=== PATIENT | male | born 1945 | race Caucasian/White ===

== ENCOUNTER 2022-03-15 14:46 | Emergency (ER) | payer MEDICARE, SELFPAY ==
[2022-03-15 14:56] VITALS: BP 145/63; BP 170/80; PULSE 77; PULSE 80; RESP 16; TEMP 36.7; O2SAT 98; O2SAT 99; BMI 29.7
[2022-03-15 15:29] LABS: Glucose, Whole Blood 141 mg/dL (60-115)
--- NOTE | 2022-03-15 16:35 | ED_ITS ---
HPI - Overdose General Chief Complaint: Overdose Stated Complaint: ALTERED,? DUE TO DRUGS,NARCAN GIVEN W/GOOD RESULT Time Seen by Provider: 03/15/22 15:16 Source: patient and EMS Mode of arrival: EMS History of Present Illness HPI Narrative: This is a 76-year-old male who is brought in by EMS after he was found at home by a friend unresponsive. Patient states that he admits to being tired and that his friend offered him ?something? and then he said I was totally out of it. EMS reports a received 4 mg of intranasal Narcan and had to be bagged for a short period of time. Patient denies use of heroin on a regular basis and states that he was just feeling so tired. He denies wanting to kill himself. Related Data Allergies Allergy/AdvReac Type Severity Reaction Status Date / Time No Known Allergies Allergy Verified 03/15/22 15:03 Review of Systems Review of Systems: Pertinent positives and negatives as stated in HPI 10 point review of systems is otherwise negative. PMFSH Past Medical History Source: nursing notes reviewed Social History Social History Advance Directives: No Advance Directives Information Provided: No Physical Exam Vital Signs: Vital Signs: Last Vital Signs Temp 98.0 F 03/15/22 14:56 Pulse 73 03/15/22 16:43 Resp 14 03/15/22 16:43 BP 130/67 03/15/22 16:43 Pulse Ox 100 03/15/22 16:43 O2 Del Method 03/15/22 16:43 BMI result Body Mass Index 29.7 VITAL SIGNS: Reviewed. GENERAL: Well developed, well nourished, in no acute distress. HEAD: Normocephalic/atraumatic EYES: PERRLA, EOMI EARS: Ext canals without abnormality OROPHARYNX: no oral lesions noted, posterior pharynx clear LUNGS: Normal breath sounds. No adventitious sounds or accessory muscle use. SpO2<100> CARDIOVASCULAR: Regular rate and rhythm without noted murmurs ABDOMEN: Soft, non-tender, non-distended with bowel sounds. MUSCULOSKELETAL: No tenderness, deformities, or effusions noted on gross inspection. EXTREMITIES: No cyanosis, clubbing or edema. SKIN: Inspection of the skin reveals no rashes NEUROLOGIC: Alert and oriented x 4. Strength and sensation to light touch were grossly intact x 4. Course Course Course Narrative: 76-year-old male with history and clinical presentation consistent with extends overdose and no evidence to suggest suicidal ideation as patient denies this. Patient reports that this is his 1st use of heroin however he will be discharged home with with home Narcan. horse riding coach or instructor came by and discussed detox with the patient and he declined. MDM - Overdose Lab Data Labs: Lab Results 03/15/22 Range/Units 15:25 POC Glucose 141 H (60-115) mg/dL Discharge Plan Discharge Clinical Impression: Drug overdose Patient Disposition: Home, Self-Care Instructions: Adult Overdose (ED) Additional Instructions: 1. Resume all home medications as prescribed. 2. Recommend that you avoid taking any drugs. 3. Follow-up with your primary care provider in the next 1-2 days for re- evaluation. Return to the ER for worsening symptoms. Referrals: Abraham Alexander MD [Primary Care Provider] -
[2022-03-15 16:43] VITALS: BP 130/67; PULSE 73; RESP 14; O2SAT 100
--- NOTE | 2022-03-15 18:13 | MHC.RECOVSUP ---
? Reason for consult:Recovery Support o Current location:ED-9 o Identified substance use concern:Heroine - Overdose - Support ? Intervention: o Community resources provided o Harm reduction discussion ? Plan: o Patient to follow up with HF after discharge ? Additional information: Patient refuses detox, Patient wants to go home, Patient given community resources
== END 2022-03-15 19:06 | disposition home or self-care (01) ==
PROVIDERS: Emergency Provider Student in an Organized Health Care Education/Training Program; PCP Internal Medicine
DX: T50.901A Poisoning by unspecified drugs, medicaments and biological substances, accidental (unintentional), initial encounter (principal); R40.4 Transient alteration of awareness; Y92.009 Unspecified place in unspecified non-institutional (private) residence as the place of occurrence of the external cause
CPT/HCPCS: 82947; 99283

== ENCOUNTER 2022-08-04 13:01 | Inpatient (IN) | payer MEDICARE, SELFPAY ==
--- NOTE | ~2022-08-04 | XR_ITS ---
EXAMINATION: XR CHEST CLINICAL INFORMATION: Chest pain COMPARISON: Chest x-rays of 01/02/2010 TECHNIQUE: Frontal view of the chest was obtained. FINDINGS: The cardiomediastinal silhouette is normal. Cardiac leads and wires overlie the chest. Small portion of bilateral lung apices is obscured by patient's face. The lungs are adequately and symmetrically expanded. No focal consolidation, changes of congestion or pleural effusions are seen. No pneumothorax. Regional skeleton is intact. Osteoarthritic changes are noted at the bilateral glenohumeral articulations. Visualized upper abdomen is unremarkable. XR/XR chest 1V IMPRESSION: No acute pulmonary process.
--- NOTE | ~2022-08-04 | US_ITS ---
EXAMINATION: US VENOUS ULTRASOUND WITH DOPPLER LOWER EXTREMITY, BILATERAL CLINICAL INFORMATION: Bilateral leg swelling. COMPARISON: None TECHNIQUE: Ultrasound of the deep veins is performed from the hip to the calf with compression sonography and color and pulse Doppler assessment. Spectral analysis with color-flow imaging is performed. FINDINGS: RIGHT: There is normal venous compression and respiratory variation and augmented flow. The visualized common femoral vein, femoral vein, profunda femoral vein, popliteal vein, and the trifurcation region shows no evidence of deep venous thrombosis. There is no significant popliteal fossa cyst. LEFT: There is normal venous compression and respiratory variation and augmented flow. The visualized common femoral vein, femoral vein, profunda femoral vein, popliteal vein, and the trifurcation region shows no evidence of deep venous thrombosis. There is no significant popliteal fossa cyst. US/US venous duplex LE BI IMPRESSION: No evidence of deep venous thrombosis of the lower extremities, bilaterally.
[2022-08-04 13:18] VITALS: BP 127/70; O2SAT 99
[2022-08-04 13:24] VITALS: BP 152/62; PULSE 82; RESP 15; TEMP 36.7; O2SAT 98
[2022-08-04 13:31] VITALS: BP 152/62; PULSE 78; RESP 18; TEMP 36.7; O2SAT 99; BMI 30.8
--- NOTE | 2022-08-04 13:38 | ECG_ITS ---
Test Reason : CP Blood Pressure : / mmHG Vent. Rate : 068 BPM Atrial Rate : 000 BPM P-R Int : 000 ms QRS Dur : 090 ms QT Int : 410 ms P-R-T Axes : 000 050 067 degrees QTc Int : 435 ms Atrial fibrillation Intra-ventricular conduction delay Nonspecific ST and T wave abnormality Abnormal ECG No previous ECGs available Referred By: Adeel Dunham Electronically Signed By:ANA WILDE MD
--- NOTE | 2022-08-04 13:51 | ED_ITS ---
HPI - General Adult General Chief complaint: General Medical Stated complaint: eval for leg swelling Time Seen by Provider: 08/04/22 13:33 Source: patient Mode of arrival: EMS Limitations: no limitations History of Present Illness HPI narrative: This is a 77 years old male presented to the emergency department complaining of lower extremity edema for about 3 days, he has history of alcohol abuse denies any chest pain shortness of breath Onset (ago): day(s) (3) Location: lower extremity Radiation: non-radiation Severity: moderate Pain Consistency: constant Exacerbating factors: none Related Data Home Medications Medication Instructions Recorded Confirmed allopurinol 100 mg tablet 1 tab PO DAILY 08/04/22 apixaban 5 mg tablet (Eliquis) 1 tab PO BID 08/04/22 ferrous sulfate 325 mg (65 mg 1 tab PO DAILY 08/04/22 iron) tablet metformin 500 mg tablet 1 tab PO DAILY 08/04/22 omeprazole 20 mg capsule,delayed 1 cap PO DAILY@0630 08/04/22 08/04/22 release oxycodone 5 mg tablet 1 tab PO TID PRN Moderate Pain 08/04/22 (Scale Score 5-6) pravastatin 20 mg tablet 1 tab PO DAILY 08/04/22 ropinirole 2 mg tablet 1 tab PO BID@1700,2100 08/04/22 Allergies Allergy/AdvReac Type Severity Reaction Status Date / Time No Known Allergies Allergy Verified 03/15/22 15:03 Review of Systems Review of Systems: Yes all other systems are reviewed and are negative Constitutional: Constitutional: Reports no additional constitutional complaints Cardiovascular: Cardiovascular: Reports no additional cardiovascular complaints Respiratory: Respiratory: Reports no additional respiratory complaints Musculoskeletal: Musculoskeletal: Reports no additional musculoskeletal complaints [facility] Past Medical History [facility] Narrative: Alcohol abuse, Medical History Alcohol abuse Atrial fibrillation Diabetes mellitus Gout Social History Social History Advance Directives: No Advance Directives Information Provided: Yes Physical Exam ED Vital Signs: Vital Signs - 24 hr 08/04/22 13:31 08/04/22 13:24 Temperature 98.1 F 98.1 F Pulse Rate 78 82 Respiratory Rate 18 15 Blood Pressure 152/62 H 152/62 H Pulse Oximetry 99 98 Oxygen Delivery Method Room Air Room Air BMI result Body Mass Index 30.8 Const General: cooperative HENMT Head: Yes normal to inspection Face and sinus: Yes normal facial exam Mouth: Normal oral and palatal mucosa present Throat: Yes posterior oropharynx normal Neck Neck: Yes normal visual inspection and Yes full ROM Chest Chest palpation & inspection: normal inspection of the chest Resp Effort & Inspection: normal respiratory effort Auscultation: clear to auscultation bilaterally Percussion: percussion normal Cardio Jugular venous distension: no JVD Palpation: normal PMI Rate: regular rate Rhythm: regular rhythm GI Inspection: Yes normal to inspection Palpation (GI): Soft to palpation, not firm, nontender and no guarding Skin General skin exam: no rashes or lesions noted and elasticity normal Lesions: no lesions Rashes: no rashes Extrem Other: Patient has 3+ edema in the lower extremity Medical Decision Making Lab Data Result diagrams: 08/04/22 14:11 08/04/22 14:11 Labs: Lab Results 08/04/22 08/04/22 08/04/22 Range/Units 14:11 14:11 14:11 WBC 11.9 H (4.8-10.8) X10*3/uL RBC 4.86 (4.60-5.80) X10*6/uL Hgb 13.9 L (14.0-18.0) g/dl Hct 42.8 (42.0-52.0) % MCV 88.1 (80.0-98.0) fL MCH 28.6 (27.0-33.0) pg MCHC 32.5 (31.0-36.0) g/dl RDW 16.1 H (11.0-16.0) % Plt Count 205 (160-400) X10*3/uL MPV 9.2 L (9.4-12.4) fL Immature Gran % (Auto) 0.5 H (0.0-0.4) % Neut % (Auto) 81.1 H (45-73) % Lymph % (Auto) 9.0 L (20-40) % Bleck[place] % (Auto) 8.8 (2-11) % Eos % (Auto) 0.3 (0-4) % Baso % (Auto) 0.3 (0-2) % Lymph # (Auto) 1.1 L (1.2-4.9) X10*3/uL [place] # (Auto) 1.0 (0.1-1.2) X10*3/uL Eos # (Auto) 0.0 (0.0-0.4) X10*3/uL Baso # (Auto) 0.0 (0.0-0.2) X10*3/uL Abs Immat Gran (auto) 0.06 H (0.00-0.03) X10*3/uL Absolute Neuts (auto) 9.6 H (2.0-8.3) x10*3/uL Absolute Nucleated RBC 0.000 (0.0-0.012) X10*3/uL Nucleated RBC % (auto) 0.0 (0.0-0.2) /100WBC Sodium 138 (135-145) mmol/L Potassium 3.9 (3.3-5.1) mmol/L Chloride 99 (96-108) mmol/L Carbon Dioxide 26 (22-29) mmol/L Anion Gap 17 (12-20) BUN 25 H (9-16) mg/dL Creatinine 1.01 (0.5-1.4) mg/dL Estim Creat Clear Calc 71.7 Estimated GFR > 60 Random Glucose 166 H (60-115) mg/dL Calcium 9.4 (8.4-10.2) mg/dL Total Bilirubin 1.5 H (0.0-1.0) mg/dL AST 21 (5-37) U/L ALT 23 (0-40) U/L Alkaline Phosphatase 72 (39-117) U/L Troponin I High Sens 21.4 (<3.5-35.0) ng/L B-Natriuretic Peptide (<100) pg/mL Total Protein 6.9 (6.5-8.0) g/dL Albumin 4.0 (3.5-5.0) g/dL Ethyl Alcohol mg/dL 08/04/22 08/04/22 Range/Units 14:11 14:12 WBC (4.8-10.8) X10*3/uL RBC (4.60-5.80) X10*6/uL Hgb (14.0-18.0) g/dl Hct (42.0-52.0) % MCV (80.0-98.0) fL MCH (27.0-33.0) pg MCHC (31.0-36.0) g/dl RDW (11.0-16.0) % Plt Count (160-400) X10*3/uL MPV (9.4-12.4) fL Immature Gran % (Auto) (0.0-0.4) % Neut % (Auto) (45-73) % Lymph % (Auto) (20-40) % Bleck[place] % (Auto) (2-11) % Eos % (Auto) (0-4) % Baso % (Auto) (0-2) % Lymph # (Auto) (1.2-4.9) X10*3/uL Bleck[place] # (Auto) (0.1-1.2) X10*3/uL Eos # (Auto) (0.0-0.4) X10*3/uL Baso # (Auto) (0.0-0.2) X10*3/uL Abs Immat Gran (auto) (0.00-0.03) X10*3/uL Absolute Neuts (auto) (2.0-8.3) x10*3/uL Absolute Nucleated RBC (0.0-0.012) X10*3/uL Nucleated RBC % (auto) (0.0-0.2) /100WBC Sodium (135-145) mmol/L Potassium (3.3-5.1) mmol/L Chloride (96-108) mmol/L Carbon Dioxide (22-29) mmol/L Anion Gap (12-20) BUN (9-16) mg/dL Creatinine (0.5-1.4) mg/dL Estim Creat Clear Calc Estimated GFR Random Glucose (60-115) mg/dL Calcium (8.4-10.2) mg/dL Total Bilirubin (0.0-1.0) mg/dL AST (5-37) U/L ALT (0-40) U/L Alkaline Phosphatase (39-117) U/L Troponin I High Sens (<3.5-35.0) ng/L B-Natriuretic Peptide 151 H (<100) pg/mL Total Protein (6.5-8.0) g/dL Albumin (3.5-5.0) g/dL Ethyl Alcohol < 10 mg/dL Discharge Plan Discharge Clinical Impression: Cellulitis of lower leg, Edema of both legs Patient Disposition: Admitted As Inpatient
[2022-08-04 14:17] LABS: MANUAL DIFF FLAG NO
[2022-08-04 14:19] LABS: Basophils Percent Auto 0.3 % (0-2); Eosinophils Percent Auto 0.3 % (0-4); Hematocrit 42.8 % (42.0-52.0); Hemoglobin 13.9 g/dl (14.0-18.0); Imm Gran Abs Auto 0.06 X10*3/uL (0.00-0.03); Imm Gran Pct Auto 0.5 % (0.0-0.4); Lymphocytes Absolute Auto 1.1 X10*3/uL (1.2-4.9); Mean Corpuscular HGB Conc 32.5 g/dl (31.0-36.0); Mean Corpuscular Hemoglobin 28.6 pg (27.0-33.0); Mean Corpuscular Volume 88.1 fL (80.0-98.0); Mean Platelet Volume 9.2 fL (9.4-12.4); Monocytes Percent Auto 8.8 % (2-11); Neutrophils Absolute Auto 9.6 x10*3/uL (2.0-8.3); Neutrophils Percent Auto 81.1 % (45-73); Platelet Count 205 X10*3/uL (160-400); Red Blood Count 4.86 X10*6/uL (4.60-5.80); Red Cell Distribution Width 16.1 % (11.0-16.0); White Blood Count 11.9 X10*3/uL (4.8-10.8)
--- OUTSIDE RECORDS SUMMARY | 2022-08-04 14:30 | XMS_ITS | Continuity of Care Document ---
:1945 Author Organization [facility] Address [address] [place] [phone]- Care Team Providers Name Role Phone Catherine LUZ, Abraham Moscoso Primary Care Physician Encounter [facility] Date(s): 11/21/20 - 12/21/20 [facility] [address] [place] [id number]
--- OUTSIDE RECORDS SUMMARY | 2022-08-04 14:30 | XMS_ITS | Continuity of Care Document ---
:1945 Author Organization [facility] Address [address] [place] [phone]- Care Team Providers Name Role Phone Catherine LUZ, Abraham Moscoso Primary Care Physician Encounter [facility] Date(s): 01/16/21 - 02/15/21 [facility] [address] [place] [id number] Attending Physician: Shravan Braun Admitting Physician: Shravan Braun Referring Physician: Shravan Braun
--- OUTSIDE RECORDS SUMMARY | 2022-08-04 14:30 | XMS_ITS | Continuity of Care Document ---
:1945 Author Organization [facility] Infect[facility] Disease Address [address] [place] [phone]- Care Team Providers Name Role Phone Catherine LUZ, Abraham Moscoso Primary Care Physician Encounter [facility] [place] Date(s): 12/05/20 - 01/04/21 [facility] [address] [place] [id number]
--- OUTSIDE RECORDS SUMMARY | 2022-08-04 14:30 | XMS_ITS | Continuity of Care Document ---
:1945 Author Organization [facility] Infect[facility] Disease Address [address] [place] [phone]- Care Team Providers Name Role Phone Catherine LUZ, Abraham Moscoso Primary Care Physician Encounter [facility] Date(s): 01/25/21 - 02/24/21 [facility] [address] [place] [id number]
--- OUTSIDE RECORDS SUMMARY | 2022-08-04 14:30 | XMS_ITS ---
:1945 Author Care Team Providers Name Role Phone QUAN CHAIREZ MD Primary Care Provider [phone] [facility]) OTHER [phone] Allergies Code Code System Name Reaction Severity Status Onset NKDA ? Medications Notes: meds reviewed, not up to date, see mar for complete list Problems Name Status Onset Date Source ? Type 2 Diabetes Mellitus without Complication Active ? Mixed Hyperlipidemia Active 11/18/2020 ? Gout Active 11/18/2020 ? Primary Insomnia Active 11/18/2020 ? Restless Legs Active 11/18/2020 ? Idiopathic Peripheral Neuropathy Active 11/18/2020 ? Paroxysmal Atrial Fibrillation Active 11/18/2020 ? Chronic Systolic Heart Failure Active 11/18/2020 ? Gastroesophageal Reflux Disease without Esophagitis Active 11/18/2020 ? 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 Anemia Active 12/20/2020 ? Constipation Active 01/04/2021 ? Procedures None recorded. Results Lab Results None recorded. Past Encounters None recorded. Social History Tobacco Smoking Status Never Smoker Vaccine List Vaccine Type influenza, injectable, quadrivalent 07/14/2018 06/24/2019 06/15/2020 pneumococcal conjugate PCV 13 09/18/2018 pneumococcal polysaccharide PPV23 07/27/2015 zoster live 11/04/2012 zoster recombinant 10/31/2012 Notes: Vaccines in [facility] Plan of Care Reminders Provider Appointments None recorded. ? ? Lab None recorded. ? ? Referral None recorded. ? ? Procedures None recorded. ? ? Surgeries None recorded. ? ? Imaging None recorded. ? ? Vitals 01/25/2021 03:10PM Discharge Summary Blood Pressure 130/69 mm[Hg] 01/19/2021 03:01PM Acute Rounding Visit Blood Pressure 132/86 mm[Hg] 01/17/2021 11:06AM Acute Rounding Visit Blood Pressure 130/70 mm[Hg] 01/13/2021 12:24PM Routine Rounding Visit Blood Pressure 130/70 mm[Hg] 01/11/2021 12:52PM Acute Rounding Visit Blood Pressure 130/62 mm[Hg] 01/04/2021 02:15PM Acute Rounding Visit Blood Pressure 128/64 mm[Hg] 01/02/2021 01:08PM Acute Rounding Visit Blood Pressure 120/70 mm[Hg] 12/26/2020 01:24PM Acute Rounding Visit Blood Pressure 140/80 mm[Hg] 12/23/2020 05:45AM Telemed Admitting H&P Blood Pressure (1) 138/90 mm[Hg] (2) 130/77 mm[Hg] 12/20/2020 08:39AM Initial Intake Note Blood Pressure 137/74 mm[Hg] 12/09/2020 10:16AM Acute Rounding Visit Blood Pressure 124/68 mm[Hg] 12/06/2020 03:34PM Acute Rounding Visit Blood Pressure 124/66 mm[Hg] 12/01/2020 09:11AM Acute Rounding Visit Blood Pressure 141/65 mm[Hg] 11/23/2020 07:32AM Telemed Admitting H&P Blood Pressure 132/72 mm[Hg] 11/21/2020 08:32AM Acute Rounding Visit Blood Pressure 126/72 mm[Hg] 11/18/2020 07:47AM Initial Intake Note Blood Pressure 128/68 mm[Hg]
--- OUTSIDE RECORDS SUMMARY | 2022-08-04 14:30 | XMS_ITS | Continuity of Care Document ---
:1945 Author Organization [facility] Infectious Disease Address [address] [place] [phone]- Care Team Providers Name Role Phone Catherine LUZ, Abraham Moscoso Primary Care Physician Encounter [facility] [place] Date(s): 01/16/21 - 02/15/21 [facility] Infectious Disease [address] [place] [id number]
--- OUTSIDE RECORDS SUMMARY | 2022-08-04 14:30 | XMS_ITS | Continuity of Care Document ---
:[address] [facility] Address [address] [place] [phone]- Care Team Providers Name Role Phone Catherine LUZ, Abraham Moscoso Primary Care Physician Encounter [facility] Date(s): 11/30/20 - 01/05/21 [facility] [address] [place] [phone]- Attending Physician: Ruben Ventura MD
--- OUTSIDE RECORDS SUMMARY | 2022-08-04 14:30 | XMS_ITS | Continuity of Care Document ---
:1945 [facility] Address [address] [place] [address]- Care Team Providers Name Role Phone Catherine LUZ, Abraham Moscoso Primary Care Physician Encounter [facility] Date(s): 02/08/21 - 03/10/21 [facility] [address] [place] [id number]
--- OUTSIDE RECORDS SUMMARY | 2022-08-04 14:30 | XMS_ITS | Continuity of Care Document ---
:1945 Author [facility] Address [address] [place] [phone]- Care Team Providers Name Role Phone Catherine LUZ, Abraham Moscoso Primary Care Physician Encounter [facility] Date(s): 12/06/20 - [facility]/05/[facility] [address] [place] [id number]- Attending Physician: Shravan Braun Admitting Physician: Shravan Braun Referring Physician: Shraavn Braun
--- OUTSIDE RECORDS SUMMARY | 2022-08-04 14:31 | XMS_ITS | Continuity of Care Document ---
:1945 Author Organization [facility] Infect[facility] Disease Address [address] [place] [phone]- Care Team Providers Name Role Phone Catherine LUZ, Abraham Moscoso Primary Care Physician [place] [facility] Date(s): 01/25/21 - 02/24/21 [facility] Infect[facility] Disease [address] [place] [id number]
[2022-08-04 14:38] LABS: Ethanol < 10 mg/dL
[2022-08-04 14:41] LABS: Alanine Aminotransferase 23 U/L (0-40); Alkaline Phosphatase 72 U/L (39-117); Anion Gap 17 (12-20); Aspartate Amino Transferase 21 U/L (5-37); Bilirubin Total 1.5 mg/dL (0.0-1.0); Blood Urea Nitrogen 25 mg/dL (9-16); Calcium 9.4 mg/dL (8.4-10.2); Carbon Dioxide 26 mmol/L (22-29); Chloride 99 mmol/L (96-108); Creatinine Clr Calc Pharmacy 71.7; Estimated Glomerular Filt Rate > 60; Glucose Random 166 mg/dL (60-115); Potassium 3.9 mmol/L (3.3-5.1); Sodium 138 mmol/L (135-145); Total Protein 6.9 g/dL (6.5-8.0)
[2022-08-04 14:46] LABS: B Type Natriuretic Peptide 151 pg/mL (<100)
[2022-08-04 14:46] LABS: Troponin-I High Sensitivity 21.4 ng/L (<3.5-35.0)
--- NOTE | 2022-08-04 16:16 | P.HPHOSP_ITS ---
History of Present Illness Date of Service: 08/04/22 Chief Complaint: LLE swelling and erythema A 77 years old male with PMH of AFib, gout, type 2 diabetes, alcoholism among others who presents to the hospital complaining of left lower extremity erythema and swelling for 3 days. The patient reported that he had swelling in both of his lower extremities for many years now with skin discoloration but for the last few weeks he was drinking more often, mainly hard liquor like whiskey up to 8-10 glasses a day. He noticed worsening left lower extremity swelling with associated erythema and pain upon ambulation. Denies any fever, chills, chest pain, palpitation, shortness of breath, change in bowel habit, nausea, vomiting. In the emergency he was found to have elevated BNP with evidence of cellulitis in the left lower extremity a significant edema. Started IV antibiotic and Lasix and admitted for further evaluation and treatment. Review of Systems Review of Systems: No fever, chills but generalized weakness No chest pain, palpitation No shortness of breath or coughing No abdominal pain, nausea or vomiting No urinary symptoms LLE rash, swelling and tenderness PMFSH Medical History Alcohol abuse Atrial fibrillation Diabetes mellitus Gout Social History Advance Directives: No Advance Directives Information Provided: Yes Meds Allergies Allergy/AdvReac Type Severity Reaction Status Date / Time No Known Allergies Allergy Verified 03/15/22 15:03 Active Medications: Current Medications Acetaminophen (Acetaminophen 325 Mg Tablet) 650 mg PO Q6H PRN PRN Reason: Pain, Mild (Pain Scale 1-3) Apixaban (Apixaban 5 Mg Tablet) 5 mg PO BID EDGARDO Cefazolin Sodium 2 gm/ Sodium (Chloride) 50 mls @ 100 mls/hr IV Q8H EDGARDO Insulin Human Lispro (Insulin Lispro 100 Unit/Ml 3 Ml Vial) 0 unit SUBCUT QIDACHS EDGARDO; Protocol Ondansetron HCl (Ondansetron Hcl 4 Mg/2 Ml Vial) 4 mg IVPUSH Q8H PRN PRN Reason: Nausea and Vomiting Pharmacy Consult (Consult Rx Perform Med Rec) 1 each MISCELLANE ONCE PRN PRN Reason: Consult order Sodium Chloride (0.9 % Sodium Chloride Flush 3 Ml Syringe) 3 ml IVFLUSH QSHIFT [facility] Home Medications Medication Instructions Recorded Confirmed Last Taken Type allopurinol 100 mg tablet 1 tab PO DAILY 08/04/22 Unknown History apixaban 5 mg tablet (Eliquis) 1 tab PO BID 08/04/22 Unknown History ferrous sulfate 325 mg (65 mg 1 tab PO DAILY 08/04/22 Unknown History iron) tablet metformin 500 mg tablet 1 tab PO DAILY 08/04/22 Unknown History omeprazole 20 mg capsule,delayed 1 cap PO DAILY@0630 08/04/22 08/04/22 Unknown History release oxycodone 5 mg tablet 1 tab PO TID PRN Moderate Pain 08/04/22 Unknown History (Scale Score 5-6) pravastatin 20 mg tablet 1 tab PO DAILY 08/04/22 Unknown History ropinirole 2 mg tablet 1 tab PO BID@1700,2100 08/04/22 Unknown History Physical Exam Vital Signs and Narrative: Vital Signs: Last Vital Signs Temp 98.1 F 08/04/22 13:31 Pulse 78 08/04/22 13:31 Resp 18 08/04/22 13:31 BP 152/62 H 08/04/22 13:31 Pulse Ox 99 08/04/22 13:31 O2 Del Method 08/04/22 13:31 BMI result Body Mass Index 30.8 Const: Other: Constitutional : Awake, interactive, not in distress Neck : Normal inspection, Supple Cardiovascular : RRR, no JVP, +2 bilateral lower extremity edema Respiratory : good bilateral air entry, basal fine crackles, wheezes or rhonchi Gastrointestinal: soft, lax, Normal bowel sounds, Non tender Skin : Warm, Dry, LLE rash, swelling and mild tenderness , thickened nails, poor hygiene lower extremities Neurological : Alert & oriented x3, No focal deficit Results Labs CBC and Chem 7: 08/04/22 14:11 08/04/22 14:11 Labs: Laboratory Results - last 24 hr 08/04/22 08/04/22 08/04/22 14:11 14:11 14:11 MCV 88.1 MCH 28.6 MCHC 32.5 RDW 16.1 H Plt Count 205 MPV 9.2 L Immature Gran % (Auto) 0.5 H Neut % (Auto) 81.1 H Lymph % (Auto) 9.0 L [place] % (Auto) 8.8 Eos % (Auto) 0.3 Baso % (Auto) 0.3 Lymph # (Auto) 1.1 L [place] # (Auto) 1.0 Eos # (Auto) 0.0 Baso # (Auto) 0.0 Abs Immat Gran (auto) 0.06 H Absolute Neuts (auto) 9.6 H Absolute Nucleated RBC 0.000 Nucleated RBC % (auto) 0.0 Anion Gap 17 Estim Creat Clear Calc 71.7 Estimated GFR > 60 Random Glucose 166 H Calcium 9.4 Total Bilirubin 1.5 H AST 21 ALT 23 Alkaline Phosphatase 72 Troponin I High Sens 21.4 B-Natriuretic Peptide Total Protein 6.9 Albumin 4.0 Ethyl Alcohol 08/04/22 08/04/22 14:11 14:12 MCV MCH MCHC RDW Plt Count MPV Immature Gran % (Auto) Neut % (Auto) Lymph % (Auto) R[place] % (Auto) Eos % (Auto) Baso % (Auto) Lymph # (Auto) [place] # (Auto) Eos # (Auto) Baso # (Auto) Abs Immat Gran (auto) Absolute Neuts (auto) Absolute Nucleated RBC Nucleated RBC % (auto) Anion Gap Estim Creat Clear Calc Estimated GFR Random Glucose Calcium Total Bilirubin AST ALT Alkaline Phosphatase Troponin I High Sens B-Natriuretic Peptide 151 H Total Protein Albumin Ethyl Alcohol < 10 Imaging Radiologist's Impressions: Impressions Chest X-Ray 08/04/22 13:52 IMPRESSION: No acute pulmonary process. Venous Duplex 08/04/22 14:40 IMPRESSION: No evidence of deep venous thrombosis of the lower extremities, bilaterally. Assessment and Plan (1) Alcohol abuse: Status: Acute (2) Cellulitis of lower leg: Status: Acute (3) Edema of both legs: Status: Acute Plan A 77 years old male with PMH of AFib, gout, type 2 diabetes, alcoholism among others who presents to the hospital complaining of left lower extremity erythema and swelling for 3 days. + Left lower extremity cellulitis Not septic Pending cultures Start IV antibiotic of cefazolin Fred wrap and leg elevation Bilateral LE edema Elevated BNP Seems to have chronic lower extremity edema, no history of heart failure, no symptoms of heart failure on exam Patient started on IV Lasix for edema Echo can be done in\outpatient Alcohol abuse Drinking large amount of alcohol over the last few days, high risk for withdrawal Start phenobarbital protocol and monitor with RADHAWA score Start folic acid and thiamine Type 2 diabetes SSI Diabetic diet Atrial fibrillation Not on rate controlled Continue Eliquis DVT PPX Eliquis The patient will need 2. Overnight inpatient hospital stay for treatment of cellulitis, fluid overload to prevent possible decompensation in to sepsis pending safe discharge plan. Quality Stroke Does the patient have a stroke diagnosis?: No VTE Prior VTE?: No VTE Risk Level:: Medical - moderate - high VTE Device Contraindication: Treatment Not Indicated VTE Drug Contraindication: N/A - Med Ordered
--- NOTE | 2022-08-04 16:31 | PHA.MEDREC ---
Pharmacy Consult ? Medication Reconciliation Pharmacy has completed the medication reconciliation. Patient states that around the time they started taking Osteo Biflex, swelling of the leg started to occur.
[2022-08-04 16:56] VITALS: BP 130/62; PULSE 69; RESP 18; TEMP 36.8; O2SAT 100
[2022-08-04] MEDS: Furosemide 40 MG/4 ML VIAL IVPUSH (16:59)
[2022-08-04] MEDS: ceFAZolin Sodium/Dextrose,Iso 2 GM/50 ML PIGGYBACK IV (17:00)
[2022-08-04] MEDS: PHENobarbitaL sodium 130 MG/ML IM ONCE 175 MG IM (17:59)
[2022-08-04 18:36] LABS: Glucose, Whole Blood 106 mg/dL (60-115)
[2022-08-04] MEDS: PHENobarbitaL sodium 130 MG/ML VIAL IM Q3Hx2 IM ×2 (20:25→23:18)
[2022-08-04] MEDS: Apixaban 5 MG TABLET PO (20:30)
[2022-08-04 20:31] LABS: Glucose, Whole Blood 128 mg/dL (60-115)
[2022-08-04 22:41] LABS: COVID-19 Test Negative (Negative)
[2022-08-05] VITALS (8 sets, daily range): BP systolic 88–140; BP diastolic 49–79; PULSE 69–82; RESP 16–19; TEMP 36.3–37.1; O2SAT 95–98
[2022-08-05] MEDS: ceFAZolin Sodium/Dextrose,Iso 2 GM/50 ML PIGGYBACK IV ×3 (01:20→17:08)
[2022-08-05] MEDS: 0.9 % Sodium Chloride Flush 3 ML SYRINGE IVFLUSH ×3 (01:20→16:12)
--- NOTE | 2022-08-05 03:00 | PC.NURSE ---
LATE ENTRY- BP taken at 0200 88/52. pt asleep at this time. pt arousable and placed in trendelenburg in an effort to raise BP
--- NOTE | 2022-08-05 03:02 | PC.NURSE ---
LATE ENTRY- at 0228 pt in trendelenburg at this time BP rechecked 119/50
--- NOTE | 2022-08-05 03:06 | PC.NURSE ---
This RN rechecked BP at this time pt in trendelenburg BP 135/49 HR 69. pt sleeping at this time
[2022-08-05 06:02] LABS: Hematocrit 39.2 % (42.0-52.0); Mean Corpuscular HGB Conc 33.2 g/dl (31.0-36.0); Mean Corpuscular Hemoglobin 29.2 pg (27.0-33.0); Mean Corpuscular Volume 88.1 fL (80.0-98.0); Mean Platelet Volume 9.7 fL (9.4-12.4); Platelet Count 204 X10*3/uL (160-400); Red Blood Count 4.45 X10*6/uL (4.60-5.80); Red Cell Distribution Width 15.9 % (11.0-16.0); White Blood Count 10.7 X10*3/uL (4.8-10.8)
[2022-08-05 06:30] LABS: Anion Gap 17 (12-20); Blood Urea Nitrogen 19 mg/dL (9-16); Calcium 9.1 mg/dL (8.4-10.2); Carbon Dioxide 25 mmol/L (22-29); Chloride 102 mmol/L (96-108); Creatinine Clr Calc Pharmacy 91.7; Estimated Glomerular Filt Rate > 60; Glucose Random 126 mg/dL (60-115); Potassium 3.7 mmol/L (3.3-5.1); Sodium 140 mmol/L (135-145)
[2022-08-05 06:36] LABS: B Type Natriuretic Peptide 214 pg/mL (<100)
[2022-08-05 07:56] LABS: Glucose, Whole Blood 129 mg/dL (60-115)
[2022-08-05] MEDS: Ascorbic Acid 500 MG TABLET PO (08:52)
[2022-08-05] MEDS: Apixaban 5 MG TABLET PO ×2 (08:52→22:27)
[2022-08-05] MEDS: oxyCODONE HCl Immed Release 5 MG TABLET PO ×2 (08:52→22:27)
[2022-08-05] MEDS: Thiamine HCL 100 MG TABLET PO (08:52)
[2022-08-05] MEDS: Pravastatin Sodium 20 MG TABLET PO (08:52)
[2022-08-05] MEDS: allopurinoL 100 MG TABLET PO (08:52)
[2022-08-05] MEDS: Folic Acid 1 MG TABLET PO (08:52)
[2022-08-05] MEDS: PHENobarbitaL 15 MG TABLET 45 MG PO ×2 (08:53→22:26)
[2022-08-05] MEDS: Furosemide 40 MG/4 ML VIAL IVPUSH (11:38)
--- NOTE | 2022-08-05 12:24 | P.PNIM_ITS ---
Subjective Subjective Date of Service: 08/05/22 Interval History: seen and evaluated this morning Feels improvement in pain and swelling in LE no withdrawal symptoms reported Review of Systems No fever, chills but generalized weakness No chest pain, palpitation No shortness of breath or coughing No abdominal pain, nausea or vomiting No urinary symptoms LLE rash, swelling and tenderness Physical Exam Vital Signs: Vital Signs: Last Vital Signs Temp 98.2 F 08/04/22 16:56 Pulse 78 08/05/22 09:00 Resp 19 08/05/22 09:00 BP 140/79 H 08/05/22 09:00 Pulse Ox 98 08/05/22 09:00 O2 Del Method 08/05/22 09:00 BMI result Body Mass Index 30.8 Const: Other: Constitutional : Awake, interactive, not in distress Neck : Normal inspection, Supple Cardiovascular : RRR, no JVP, +2 bilateral lower extremity edema Respiratory : good bilateral air entry, basal fine crackles, wheezes or rhonchi Gastrointestinal: soft, lax, Normal bowel sounds, Non tender Skin : Warm, Dry, LLE rash, swelling and mild tenderness , thickened nails, poor hygiene lower extremities Neurological : Alert & oriented x3, No focal deficit Objective Data Active Medications Acetaminophen (Acetaminophen 325 Mg Tablet) 650 mg PO Q6H PRN PRN Reason: Pain, Mild (Pain Scale 1-3) Allopurinol (Allopurinol 100 Mg Tablet) 100 mg PO DAILY [facility] Last Admin: 08/05/22 08:52 Dose: 100 mg Documented By: JESUS Apixaban (Apixaban 5 Mg Tablet) 5 mg PO BID [facility] Last Admin: 08/05/22 08:52 Dose: 5 mg Documented By: JESUS Ascorbic Acid (Ascorbic Acid 500 Mg Tablet) 500 mg PO DAILY [facility] Last Admin: 08/05/22 08:52 Dose: 500 mg Documented By: JESUS Folic Acid (Folic Acid 1 Mg Tablet) 1 mg PO DAILY [facility] Last Admin: 08/05/22 08:52 Dose: 1 mg Documented By: JESUS Hydrocortisone (Hydrocortisone 1 % Ointment 28.35 Gm Tube) 1 appl TOPICAL BID [facility]; Protocol Last Admin: 08/05/22 12:11 Dose: Not Given Documented By: JESUS Non-Admin Reason: See Note Cefazolin Sodium/Dextrose (Ancef) 2 gm in 50 mls @ 100 mls/hr IV Q8H [facility] Last Infusion: 08/05/22 11:39 Dose: 0 mls/hr Documented By: SHAUN Insulin Human Lispro (Insulin Lispro 100 Unit/Ml 3 Ml Vial) 0 unit SUBCUT QIDACHS [facility]; Protocol Last Admin: 08/05/22 08:53 Dose: Not Given Documented By: JESUS Non-Admin Reason: See Note Omeprazole (Omeprazole 20 Mg Capsule.Dr) 20 mg PO DAILY@0630 [facility] Ondansetron HCl (Ondansetron Hcl 4 Mg/2 Ml Vial) 4 mg IVPUSH Q8H PRN PRN Reason: Nausea and Vomiting Oxycodone HCl (Oxycodone Hcl Immed Release 5 Mg Tablet) 5 mg PO TID PRN PRN Reason: Moderate Pain (Scale Score 5-6) Last Admin: 08/05/22 08:52 Dose: 5 mg Documented By: JESUS Pharmacy Consult (Consult Rx Perform Med Rec) 1 each MISCELLANE ONCE PRN PRN Reason: Consult order Pharmacy Consult (Consult Rx Etoh Phenob Im/Po) 1 each MISCELLANE ONCE PRN; Protocol PRN Reason: Consult order Phenobarbital (Phenobarbital 15 Mg Tablet) 45 mg PO BID [facility] Stop: 08/06/22 21:01 Last Admin: 08/05/22 08:53 Dose: 45 mg Documented By: JESUS Phenobarbital (Phenobarbital 15 Mg Tablet) 15 mg PO BID [facility] Stop: 08/08/22 21:01 Phenobarbital (Phenobarbital 15 Mg Tablet) 15 mg PO DAILY [facility] Stop: 08/10/22 09:01 Pravastatin Sodium (Pravastatin Sodium 20 Mg Tablet) 20 mg PO DAILY [facility] Last Admin: 08/05/22 08:52 Dose: 20 mg Documented By: JESUS Ropinirole HCl (Ropinirole Hcl 2 Mg Tablet) 2 mg PO BEDTIME [facility] Sodium Chloride (0.9 % Sodium Chloride Flush 3 Ml Syringe) 3 ml IVFLUSH QSHIFT [facility] Last Admin: 08/05/22 08:54 Dose: 3 ml Documented By: JESUS Thiamine HCl (Thiamine Hcl 100 Mg Tablet) 100 mg PO DAILY [facility] Last Admin: 08/05/22 08:52 Dose: 100 mg Documented By: JESUS Labs CBC & Chem 7: 08/05/22 05:20 08/05/22 05:20 Labs: Laboratory Results - last 24 hr 08/04/22 08/04/22 08/04/22 14:11 14:11 14:11 MCV 88.1 MCH 28.6 MCHC 32.5 RDW 16.1 H Plt Count 205 MPV 9.2 L Immature Gran % (Auto) 0.5 H Neut % (Auto) 81.1 H Lymph % (Auto) 9.0 L [place] % (Auto) 8.8 Eos % (Auto) 0.3 Baso % (Auto) 0.3 Lymph # (Auto) 1.1 L [place] # (Auto) 1.0 Eos # (Auto) 0.0 Baso # (Auto) 0.0 Abs Immat Gran (auto) 0.06 H Absolute Neuts (auto) 9.6 H Absolute Nucleated RBC 0.000 Nucleated RBC % (auto) 0.0 Anion Gap 17 Estim Creat Clear Calc 71.7 Estimated GFR > 60 POC Glucose Random Glucose 166 H Calcium 9.4 Total Bilirubin 1.5 H AST 21 ALT 23 Alkaline Phosphatase 72 Troponin I High Sens 21.4 B-Natriuretic Peptide Total Protein 6.9 Albumin 4.0 Ethyl Alcohol COVID-19 ([facility]) COVID-19 Clin Com 08/04/22 08/04/22 08/04/22 14:11 14:12 18:23 MCV MCH MCHC RDW Plt Count MPV Immature Gran % (Auto) Neut % (Auto) Lymph % (Auto) [place] % (Auto) Eos % (Auto) Baso % (Auto) Lymph # (Auto) [place] # (Auto) Eos # (Auto) Baso # (Auto) Abs Immat Gran (auto) Absolute Neuts (auto) Absolute Nucleated RBC Nucleated RBC % (auto) Anion Gap Estim Creat Clear Calc Estimated GFR POC Glucose 106 Random Glucose Calcium Total Bilirubin AST ALT Alkaline Phosphatase Troponin I High Sens B-Natriuretic Peptide 151 H Total Protein Albumin Ethyl Alcohol < 10 COVID-19 ([facility]) COVID-19 Clin Com 08/04/22 08/04/22 08/05/22 20:23 22:10 05:20 MCV 88.1 MCH 29.2 MCHC 33.2 RDW 15.9 Plt Count 204 MPV 9.7 Immature Gran % (Auto) Neut % (Auto) Lymph % (Auto) [place] % (Auto) Eos % (Auto) Baso % (Auto) Lymph # (Auto) [place] # (Auto) Eos # (Auto) Baso # (Auto) Abs Immat Gran (auto) Absolute Neuts (auto) Absolute Nucleated RBC 0.000 Nucleated RBC % (auto) 0.0 Anion Gap Estim Creat Clear Calc Estimated GFR POC Glucose 128 H Random Glucose Calcium Total Bilirubin AST ALT Alkaline Phosphatase Troponin I High Sens B-Natriuretic Peptide Total Protein Albumin Ethyl Alcohol COVID-19 ([facility]) Negative COVID-19 Clin Com See Note 08/05/22 08/05/22 08/05/22 05:20 05:20 07:25 MCV MCH MCHC RDW Plt Count MPV Immature Gran % (Auto) Neut % (Auto) Lymph % (Auto) [place] % (Auto) Eos % (Auto) Baso % (Auto) Lymph # (Auto) [place] # (Auto) Eos # (Auto) Baso # (Auto) Abs Immat Gran (auto) Absolute Neuts (auto) Absolute Nucleated RBC Nucleated RBC % (auto) Anion Gap 17 Estim Creat Clear Calc 91.7 Estimated GFR > 60 POC Glucose 129 H Random Glucose 126 H Calcium 9.1 Total Bilirubin AST ALT Alkaline Phosphatase Troponin I High Sens B-Natriuretic Peptide 214 H Total Protein Albumin Ethyl Alcohol COVID-19 ([facility]) COVID-19 Clin Com Assessment and Plan (1) Cellulitis of lower leg: Status: Acute (2) Alcohol abuse: Status: Acute (3) Edema of both legs: Status: Acute Plan A 77 years old male with PMH of AFib, gout, type 2 diabetes, alcoholism among others who presents to the hospital complaining of left lower extremity erythema and swelling for 3 days. + Left lower extremity cellulitis Not septic , seems chronic changes from prolonged edema suggestive of stasis dermatitis with superficial cellulitis Pending cultures Apply hydrocortisone cream IV antibiotic of cefazolin Fred wrap and leg elevation Bilateral LE edema Elevated BNP Seems to have chronic lower extremity edema, no history of heart failure, no symptoms of heart failure on exam IV Lasix for edema Echo can be done in\outpatient Alcohol abuse Drinking large amount of alcohol over the last few days, high risk for withdrawal phenobarbital protocol and monitor with CIWA score folic acid and thiamine Type 2 diabetes SSI Diabetic diet Atrial fibrillation Not on rate controlled Continue Eliquis DVT PPX Eliquis The patient will need Overnight inpatient hospital stay for treatment of cellulitis, fluid overload to prevent possible decompensation in to sepsis pending safe discharge plan. Quality Stroke Does the patient have a stroke diagnosis?: No VTE Prior VTE?: No VTE Risk Level:: Medical - moderate - high VTE Device Contraindication: Treatment Not Indicated VTE Drug Contraindication: N/A - Med Ordered
--- NOTE | 2022-08-05 12:49 | PC.NURSE ---
urinating frequently. skin pwd. edema in BLE noted, plus 3 bilaterally. RIGOBERTO wraps repositioned and legs elevated. pt is axox3. unlabored resp.
--- NOTE | 2022-08-05 13:03 | PC.NURSE ---
rn to rn with Annika on floor.
[2022-08-05 13:10] LABS: Glucose, Whole Blood 98 mg/dL (60-115)
--- NOTE | 2022-08-05 16:11 | MHC.CM.PN ---
CM ATTEMPTED TO WAKE PT TO COMPLETE ORDER ENTRY REPRESENTATIVE, PT DOES NOT RESPOND TO HIS NAME AND CONTINUES TO SNORE AND MUMBLE IN HIS SLEEP. CM WILL ATTEMPT TO MEET PT TOMORROW WHEN HE MAY BE MORE ALERT
[2022-08-05 16:19] LABS: Glucose, Whole Blood 221 mg/dL (60-115)
[2022-08-05] MEDS: Insulin Lispro 100 UNIT/ML 3 ML VIAL SUBCUT (17:08)
[2022-08-05] MEDS: Lidocaine 4 % Patch ADH..PATCH 2 PATCH TRANSDERMA (17:08)
[2022-08-05 19:52] LABS: Glucose, Whole Blood 121 mg/dL (60-115)
[2022-08-05] MEDS: rOPINIRole HCL 2 MG TABLET PO (22:27)
[2022-08-05] MEDS: Hydrocortisone 1 % Ointment 28.35 GM TUBE 1 APPL TOPICAL (22:30)
[2022-08-06] MEDS: 0.9 % Sodium Chloride Flush 3 ML SYRINGE IVFLUSH ×2 (01:13→08:24)
[2022-08-06] MEDS: ceFAZolin Sodium/Dextrose,Iso 2 GM/50 ML PIGGYBACK IV ×2 (01:17→08:24)
[2022-08-06 03:55] VITALS: BP 136/72; PULSE 80; RESP 17; TEMP 36.5; O2SAT 96
[2022-08-06] MEDS: Omeprazole 20 MG CAPSULE.DR PO (06:26)
[2022-08-06 07:58] VITALS: BP 166/70; PULSE 75; RESP 18; TEMP 36.6; O2SAT 97
[2022-08-06] MEDS: PHENobarbitaL 15 MG TABLET 45 MG PO (08:11)
[2022-08-06] MEDS: Ascorbic Acid 500 MG TABLET PO (08:12)
[2022-08-06] MEDS: Apixaban 5 MG TABLET PO (08:12)
[2022-08-06] MEDS: Pravastatin Sodium 20 MG TABLET PO (08:12)
[2022-08-06] MEDS: Folic Acid 1 MG TABLET PO (08:12)
[2022-08-06] MEDS: Thiamine HCL 100 MG TABLET PO (08:12)
[2022-08-06] MEDS: allopurinoL 100 MG TABLET PO (08:13)
[2022-08-06 08:28] LABS: Glucose, Whole Blood 122 mg/dL (60-115)
--- NOTE | 2022-08-06 10:27 | MHC.CM.PN ---
IMM 08/06/22, EMR REVIEWED, CM MET W/PT WHO IS ALERT AND ORIENTED, PT REPORTS HE LIVES ALONE, HAS A CANE AND WALKER FOR WHEN HE NEEDS THEM, PT PRIVATE PAYS A CREATIVE COORDINATOR TO ASSIST W/CLEANING/LAUNDRY, PT REPORTS HE STILL DRIVES AND IS GOING TO OUTPT PT FOR HIS NECK AT [facility] IN [place] AND WOULD LIKE TO CONT, PT AWARE HE CANNOT HAVE A VNA AND OUTPT THERAPY AT THE SAME TIME. ANTIC D/C TODAY HOME NO SERVICES W/FRIEND FOR TRANSPORT
--- NOTE | 2022-08-06 11:10 | P.DS_ITS ---
DS: Providers Provider Date of Service: 08/06/22 Date of admission: 08/04/22 16:11 Primary care physician: None Physician DS: Diagnosis Discharge Diagnosis (1) Cellulitis of lower leg: Status: Acute (2) Alcohol abuse: Status: Acute (3) Edema of both legs: Status: Acute DS: Summary Hospital Course Hospital Course: Admission note HPI A 77 years old male with PMH of AFib, gout, type 2 diabetes, alcoholism among others who presents to the hospital complaining of left lower extremity erythema and swelling for 3 days.? The patient reported that he had swelling in both of his lower extremities for many years now with skin discoloration but for the last few weeks he was drinking more often, mainly hard liquor like whiskey up to 8-10 glasses a day.? He noticed worsening left lower extremity swelling with associated erythema and pain upon ambulation.? Denies any fever, chills, chest pain, palpitation, shortness of breath, change in bowel habit, nausea, vomiting. In the emergency he was found to have elevated BNP with evidence of cellulitis in the left lower extremity a significant edema.? Started IV antibiotic and Lasix and admitted for further evaluation and treatment. Hospital course The patient was admitted for left lower extremity swelling with associated erythema showing evidence of cellulitis treated with IV antibiotics with good response over the course of hospital stay as blood cultures remain negative. Hydrocortisone was applied to the skin for chronic changes from stasis dermatitis. His leg was wrapped with Fred wrap with good response as well. Received IV Lasix to decrease the swelling. Echo will be ordered as outpatient. Covered with phenobarbital protocol for reported history of significant alcohol abuse. No symptoms of withdrawal was noted as the patient was covered with phenobarbital. Started on folic acid and thiamine. To be discharged on thiamine daily. Continue doxycycline and Ceftin as prescribed Follow-up with business resiliency manager as outpatient for lower extremity care Apply hydrocortisone ointment twice daily on the lower extremities for the next week Continue thiamine daily We advise you complete abstinence from alcohol Follow-up with PCP as outpatient To do echo as outpatient Time Spent with Patient Time attestation: Total time spent providing and/or coordinating discharge services: Discharge coordination time: Greater than 30 minutes Quality: Safe Use of Opioids Does Pt have an Active Cancer Diagnosis on the Problem List?: No Quality: Stroke Does the patient have a stroke diagnosis?: No Physical Exam Vital Signs: Vital Signs: Last Vital Signs Temp 97.8 F 08/06/22 07:58 Pulse 75 08/06/22 07:58 Resp 18 08/06/22 07:58 BP 166/70 H 08/06/22 07:58 Pulse Ox 97 08/06/22 07:58 O2 Del Method 08/06/22 07:58 BMI result Body Mass Index 30.8 Const: Other: Constitutional : Awake, interactive, not in distress Neck : Normal inspection, Supple Cardiovascular : RRR, no JVP, trace bilateral lower extremity edema Respiratory : good bilateral air entry, basal fine crackles, wheezes or rhonchi Gastrointestinal: soft, lax, Normal bowel sounds, Non tender Skin : Warm, Dry, LLE rash improving, no more tenderness , thickened nails, poor hygiene lower extremities Neurological : Alert & oriented x3, No focal deficit DS: Data Data Completed and Pending Labs on day of discharge: Laboratory Results - last 24 hr 08/05/22 08/05/22 08/05/22 13:01 15:18 19:32 POC Glucose 98 221 H 121 H 08/06/22 07:56 POC Glucose 122 H Preliminary micro results at discharge 08/04/22 16:32 Blood Culture - Preliminary Blood - Venous Prelim: GPC Gram Stain only 08/04/22 16:32 Blood Culture - Preliminary Blood - Venous No growth after 24 hours. Imaging Chest x-ray: Radiologist's impression: ITS Impressions Chest X-Ray 08/04/22 13:52 IMPRESSION: No acute pulmonary process. Venous Duplex 08/04/22 14:40 IMPRESSION: No evidence of deep venous thrombosis of the lower extremities, bilaterally. Discharge Plan Discharge Anticipated Discharge Date/Time: 08/06/22 10:45 Patient Disposition: Home, Self-Care Discharge Diagnosis: Left lower extremity cellulitis Lower extremity swelling Alcohol abuse Referrals: Physician,None [Primary Care Provider] - 1 Week Discharge Medications: New hydrocortisone 1 % Ointment 1 appl topical BID 7 Days Qty: 28.35 2RF Protocol: Apply to: Apply to: Left Lower extremity thiamine mononitrate (vit B1) 100 mg Tablet 100 mg PO DAILY 30 Days Qty: 30 0RF cefuroxime axetil 500 mg tablet 500 mg PO BID Qty: 10 0RF doxycycline monohydrate 100 mg capsule 100 mg PO BID Qty: 10 0RF Continued metformin 500 mg tablet 1 tab PO DAILY allopurinol 100 mg tablet 1 tab PO DAILY ropinirole 2 mg tablet 1 tab PO BEDTIME ferrous sulfate 325 mg (65 mg iron) tablet 1 tab PO DAILY omeprazole 20 mg capsule,delayed release(DR/EC) 1 cap PO DAILY@0630 pravastatin 20 mg tablet 1 tab PO DAILY oxycodone 5 mg tablet 1 tab PO TID PRN (Reason: Moderate Pain (Scale Score 5-6)) Eliquis 5 mg tablet 1 tab PO BID acetaminophen 650 mg Tablet Extended Release 650 mg PO Q8H PRN (Reason: Pain) ascorbic acid (vitamin C) [Vitamin C] 500 mg Tablet 500 mg PO DAILY glucosamine-chondroitin [Osteo Bi-Flex] 250-200 mg Tablet 2 tab PO DAILY Rx Instructions: give after food/meal cholecalciferol (vitamin D3) [Vitamin D3] 25 mcg (1,000 unit) Tablet 25 mcg PO DAILY Discharge Orders: Discharge Order (Routine); Ordered 08/06/22 Ordered By: Eva Espinal Diet: Advance to usual diet Activity on Discharge: As tolerated Stand Alone Forms: Patient Portal Discharge page Care Plan Goals: Read below Health Concerns: Read below Plan of Treatment: Read below Assessment: You were admitted to the hospital for evaluation of left lower extremity swelling and pain. Treated as infection with IV antibiotics with good response over the course of hospital stay along with Fred wrap and legs elevation. You were also monitored for alcohol abuse and risk for withdrawal treated with phenobarbital protocol. Continue doxycycline and Ceftin as prescribed Follow-up with business resiliency manager as outpatient for lower extremity care Apply hydrocortisone ointment twice daily on the lower extremities for the next week Continue thiamine daily We advise you complete abstinence from alcohol Follow-up with PCP as outpatient
[2022-08-06 11:53] LABS: Glucose, Whole Blood 150 mg/dL (60-115)
[2022-08-06 12:00] VITALS: TEMP 36.4
== END 2022-08-06 12:31 | disposition home or self-care (01) | DRG 603 ==
LOC: HO.ED 16:04 → HO.EDOVER 16:17 → HO.S3 08-05 12:24
PROVIDERS: Admitting Provider Student in an Organized Health Care Education/Training Program; Emergency Provider Emergency Medicine; PCP Internal Medicine; Visit Provider Student in an Organized Health Care Education/Training Program
DX: L03.116 Cellulitis of left lower limb (principal); F10.20 Alcohol dependence, uncomplicated; M10.9 Gout, unspecified; I48.91 Unspecified atrial fibrillation; I87.2 Venous insufficiency (chronic) (peripheral); Z20.822 Contact with and (suspected) exposure to COVID-19; Z79.01 Long term (current) use of anticoagulants; Z79.84 Long term (current) use of oral hypoglycemic drugs; Z79.899 Other long term (current) drug therapy
CPT/HCPCS: 36415; 71045; 80048; 80053; 82077; 82947; 83880; 84484; 85025; 85027; 87040; 87147; 87205; 87635; 93005; 93970; 97162; 99285; J0690; J1940; J2560